=== PATIENT | male | born 1965 | race Caucasian/White ===

== ENCOUNTER 2022-05-03 21:53 | Observation (INO) ==
[2022-05-04] MEDS ORDERED: Naloxone 0.4 MG/ML INJ IVP PRN (00:08)
[2022-05-04] MEDS ORDERED: Ondansetron 4 MG/2 ML VIAL IVP PRN (00:08)
[2022-05-04] MEDS ORDERED: *HR* Promethazine 25 MG/ML VIAL IM PRN (00:08)
[2022-05-04] MEDS ORDERED: Acetaminophen 325 MG TABLET PO PRN (00:08)
[2022-05-04] MEDS ORDERED: Melatonin 3 MG TABLET PO PRN (00:08)
[2022-05-04] MEDS ORDERED: Iopamidol - 370 500 ML MLS IVP ONE (00:47)
[2022-05-04] MEDS ORDERED: Ipratropium/Albuterol Neb 3 ML IH PRN (01:10)
[2022-05-04] MEDS: Dexamethasone Sodium Phos/PF 10 MG/ML VIAL IVP SCH ×4 (01:41→18:12)
[2022-05-04] MEDS: Loratadine 10 MG TABLET PO SCH ×3 (01:42→19:36)
[2022-05-04] MEDS: Ringers Solution, Lactated 1,000 ML IVC SCH ×2 (01:42→10:59)
[2022-05-04 02:10] LABS: Basophils % 0.1 %; Hematocrit 43.9 % (37.5-50.1); Hemoglobin 14.5 g/dL (12.9-16.9); Immature Granulocytes % 0.8 % (0-4); Lymphocytes # 0.6 K/mcL (0.6-4.6); Lymphocytes % 3.1 %; Mean Corpuscular Hemoglobin 30.1 pg (28.0-33.3); Mean Corpuscular Volume 91.1 fL (83.0-100.0); Mean Platelet Volume 11.3 fL (9.4-12.4); Monocytes # 0.7 K/mcL (0.0-1.3); Neutrophils # 16.4 K/mcL (1.6-8.9); Platelet Count 239 K/mcL (140-400); Red Blood Count 4.82 M/mcL (4.19-5.50); Red Cell Distribution Width 14.5 % (11.5-14.5); White Blood Count 17.8 K/mcL (4.3-11.1)
[2022-05-04 02:16] LABS: Prothrombin Time 11.6 Seconds (9.4-12.1)
[2022-05-04 02:31] LABS: Complement C3 123 mg/dL (87-200)
[2022-05-04 02:32] LABS: Alanine Aminotransferase 13 Units/L (7-52); Albumin 3.6 g/dL (3.5-5.7); Albumin/Globulin Ratio 1.3 (1.1-2.2); Alkaline Phosphatase 40 Units/L (34-104); Aspartate Amino Transferase 13 Units/L (13-39); BUN/Creatinine Ratio 18 (6-26); Bilirubin,Total 0.4 mg/dL (0.3-1.0); Blood Urea Nitrogen 16 mg/dL (6-20); C-Reactive Protein 30 mg/L (Less than 10); Calcium 8.7 mg/dL (8.6-10.3); Carbon Dioxide 25 mEq/L (23-29); Chloride 106 mEq/L (98-107); Globulin 2.7 g/dL (2.4-3.5); Glucose 131 mg/dL (70-105); Osmolality,Calculated 289 (280-300); Phosphorous 3.2 mg/dL (2.7-4.5); Potassium 4.3 mEq/L (3.5-5.1); Sodium 138 mEq/L (136-145); Total Protein 6.3 g/dL (6.4-8.9); eGFR For African Americans > 60 (> 60); eGFR For Non-African Americans > 60 (> 60)
[2022-05-04 02:40] LABS: Procalcitonin 0.04 ng/mL (0.00-0.15)
[2022-05-04 04:06] LABS: Hepatitis B Surface Antigen Nonreactive (Nonreactive)
[2022-05-04] MEDS: Ampicillin/Sulbactam 3,000 MG in 0.9 % Sodium Chloride Mini Bag 100 ML IVPB SCH ×4 (04:06→20:32)
[2022-05-04 04:35] LABS: Hepatitis B Core IgM Nonreactive (Nonreactive); Hepatitis C Virus Antibody Nonreactive (Nonreactive)
[2022-05-04 04:36] LABS: Hepatitis A Antibody IgM Nonreactive (Nonreactive)
[2022-05-04] MEDS: *HR* Enoxaparin 40 MG/0.4 ML SYRINGE SQ SCH (06:17)
[2022-05-05] MEDS: Dexamethasone Sodium Phos/PF 10 MG/ML VIAL IVP SCH ×2 (00:12→07:39)
[2022-05-05] MEDS: Ampicillin/Sulbactam 3,000 MG in 0.9 % Sodium Chloride Mini Bag 100 ML IVPB SCH ×2 (03:30→08:35)
[2022-05-05] MEDS: *HR* Enoxaparin 40 MG/0.4 ML SYRINGE SQ SCH (04:31)
[2022-05-05 07:27] VITALS: BP 125/78; PULSE 77; TEMP 98; O2SAT 93
[2022-05-05] MEDS: Loratadine 10 MG TABLET PO SCH (08:12)
[2022-05-05] MEDS ORDERED: Aspirin Enteric Coated 81 MG Tablet PO SCH (09:00)
[2022-05-05] MEDS ORDERED: Cholecalciferol (D-3) 1,000 UNIT (25MCG) TABLET PO SCH (09:00)
[2022-05-05] MEDS ORDERED: BuPROPion XL (24 HR) 150 MG TABLET PO SCH (09:00)
[2022-05-05] MEDS ORDERED: Finasteride 5 MG TABLET PO SCH (09:00)
== END 2022-05-05 08:52 | disposition home or self-care (01) ==
LOC: 2NNU → SUATTDRO 23:52
PROVIDERS: ADMIT Internal Medicine; ATTEND Internal Medicine